=== PATIENT | male | born 1995 | race Caucasian/White ===

== ENCOUNTER 2020-01-06 10:20 | Emergency (ER) | payer MEDICAID, OTHER ==
[~2020-01-06] VITALS: Ht 180.3 cm; Wt 77.1 kg
[2020-01-06 10:25] VITALS: BP 132/85
--- NOTE | 2020-01-06 10:25 | NUR ---
PT AMBULATED TO BED 11.
--- NOTE | 2020-01-06 10:30 | NUR ---
PATIENT PRESENTS TO ED WITH c/o left wrist pain . PT STATES approx 40# box fell from shelf and bent left wrist back while at work. DENIES N/V/D; SKIN IS PINK/WARM/DRY; AAOX4 WITH EVEN AND STEADY GAIT; LUNGS CLEAR BL; HR EVEN AND REGULAR; PT DENIES ANY FEVER, CP, SOB, OR COUGH AT THIS TIME; PATIENT STATES PAIN OF 0/10 AT THIS TIME; VSS; PATIENT POSITIONED FOR COMFORT; HOB ELEVATED; BEDRAILS UP X2; BED DOWN. ER MD MADE AWARE OF PT STATUS. left wrist wrist with slight swelling noted. Guarded rom noted with rapid capillary refill.
[2020-01-06] MEDS ORDERED: ACETAMINOPHEN 325 MG TAB PO ONE (10:55)
[2020-01-06] MEDS ORDERED: IBUPROFEN 400 MG TAB PO ONE (10:55)
--- NOTE | 2020-01-06 11:55 | NUR ---
Applied left hand velcro thumb spica splint. PMSC's assessed and WNL, patient tolerated splint well.
[2020-01-06 12:15] VITALS: BP 132/85
== END 2020-01-06 12:15 | disposition home or self-care (01) ==
LOC: MED 10:20
DX: M25.532 Pain in left wrist (principal)
CPT/HCPCS: 29125; 73110; 99283; Q0092